=== PATIENT | male | born 1995 | race Caucasian/White ===

== ENCOUNTER → 2023-08-03 14:43 | Outpatient (REF) | payer OTHER, SELFPAY | LOC: RAD 14:43 | PROVIDERS: ATTENDING PHYSICIAN Orthopaedic Surgery; FAMILY PHYSICIAN Family Medicine | DX: S43.431A Superior glenoid labrum lesion of right shoulder, initial encounter (principal) | CPT/HCPCS: 23350; 73040; 73222 ==

== ENCOUNTER 2023-12-09 00:48 | Emergency (ER) | payer OTHER, SELFPAY ==
[2023-12-09 00:48] VITALS: BMI 31.8
[2023-12-09 00:49] VITALS: BP 159/116
--- NOTE | 2023-12-09 01:11 | ED.MUSCINJ ---
HPI-Injury
General
Chief Complaint: Musculo-Skeletal Complaint
Source: patient
Exam Limitations: none
Time Seen by Provider: 12/09/23 00:56
Nursing documentation reviewed up to this point in time: agreed with
History of Present Illness-Injury
Is this injury a work related problem?: Yes
Is pt an associate of [facility]/[place]?: No
Initial Injury comments:
28 yo male presents to the emergency to the emergency department c/o right shoulder pain after picking up an inmates belongings. He had shoulder surgery in September at [facility].
Past History
Past History
ED Past Medical History: None
ED Past Surgical History: Orthopedic (right ankle, right shoulder)
Social History
Tobacco: Non-smoker
Alcohol: None
Drug: None
Employment: Employed
Review of Systems
Review of Systems
Allergies reviewed?: Yes
All Other Systems: Not applicable
Constitutional: Reports no symptoms
EENT: Reports no symptoms
Respiratory: Reports no symptoms
Cardiac: Reports no symptoms
ABD/GI: Reports no symptoms
: Reports no symptoms
Musculoskeletal: Reports joint pain
Skin: Reports no symptoms
Neurological: Reports no symptoms
Endocrine: Reports no symptoms
Hematologic/Lymphatic: Reports no symptoms
Psychiatric: Reports no symptoms
Phy Exam
General Physical Exam
General Presentation: well appearing and no apparent distress
General Skin: warm and dry
Cardiovascular Exam
Cardiovascular Exam: normal peripheral pulses
Pulmonary Exam
Pulmonary Exam: lungs clear
Injury Course
Orders/Labs/Results
Orders:
Orders
12/09/23 01:01
Shoulder, Right, Trauma [CR Shoulder, Trauma - Right] Urgent
Comment:
Reason For Exam: pain afgter picking up prisoner belongings
MDM/Problems Addressed
Differential Diagnosis Includes:
Shoulder dislocation, shoulder strain
MDM/Problems Addressed:
28-year-old male with right shoulder strain versus rotator cuff tear. Sling placed. No acute findings on x-ray. Follow-up with orthopedics.
*Pulse Oximetry
Patient hypoxic: no
*Critical Care Note
Total Time (30-74mins, 75-104mins- exclusive of procedures): Not Applicable
Patient Management
Social determinants of health affecting care: Living situation
Escalation/DeEscalation of care consider admission/obs:
admit not indicated
ED Attending Note
-
Portions of this chart may have been created with voice recognition software.� Occasional wrong word or��sound alike� substitutions may have occurred due to the inherent limitations of voice recognition software.
Discharge Plan
Departure
Referrals:
NONE,* [Family Provider] -
Interventions
Interventions:
*Risk Screen - Suicide Last Done: 12/09/23 00:49
Discharge Date and Time
Print Language: ARABIC
[2023-12-09] MEDS: TYLENOL 1000 MG PO (01:49)
== END 2023-12-09 01:53 | disposition home or self-care (01) ==
LOC: EMR 00:48
PROVIDERS: EMERGENCY PHYSICIAN Emergency Medicine
DX: M25.511 Pain in right shoulder (principal); X58.XXXA Exposure to other specified factors, initial encounter; Y99.0 Civilian activity done for income or pay; Z98.890 Other specified postprocedural states
CPT/HCPCS: 99283; 73030

== ENCOUNTER 2025-01-25 21:38 | Emergency (ER) | payer SELFPAY ==
[2025-01-25 21:47] VITALS: BP 168/106
[2025-01-25] MEDS: TYLENOL 1000 MG PO (23:54)
[2025-01-25] MEDS: LIDOCAINE 4% PATCH 1 PATCH TOPICAL (23:55)
[2025-01-25] MEDS: DELTASONE 50 MG PO (23:55)
--- NOTE | 2025-01-25 23:59 | ED.GENMED ---
History of Present Illness
General
Chief Complaint: Back Pain
Source: patient
Exam Limitations: none
Time Seen by Provider: 01/25/25 23:03
Nursing documentation reviewed up to this point in time: agreed with
History of Present Illness
History of Present Illness:
see MDM
Past History
Past History
ED Past Medical History: None
ED Past Surgical History: Orthopedic (right ankle, right shoulder)
Social History
Tobacco: Non-smoker
Alcohol: None
Drug: None
Employment: Employed
Review of Systems
Review of Systems
Allergies reviewed?: Yes
All Other Systems: Not applicable
Phy Exam
Physical Exam
Physical Exam:
GENERAL: Alert , in no apparent distress, comfortable at rest
HEAD: NCAT
NECK: no midline tenderness, active ROM intact, no paraspinal muscle tenderness;
CARDIAC: Regular rate and rhythm, no edema
LUNGS: Clear breath sounds bilaterally, no acute respiratory distress, no wheezes/rales/rhonchi
ABDOMEN: Soft, without focal tenderness, no r/g, no cvat, normal bowel sounds, nondistended
NEUROLOGICAL: Alert and oriented, no focal neuro deficits, CN intact, 5/5 strength, sensation intact, ambulates well
SKIN: Warm and dry, no rash, no wounds, no bruising
MUSCULOSKELETAL: No edema, well perfused. Normal inspection of the RIght hip, right leg
Patient has no tenderness to palpation of the hip, minimal tenderness in the SI joint
He has no pain with flexion of the left hip, external rotation, but with internal rotation has discomfort
Back: No midline tenderness, mild R paraspinal muscle tenderness
neg straight leg raise
pain with flexion
PSYCH: Normal and appropriate interaction.
Course
Orders/Labs/Results
Orders:
Orders
01/25/25 23:33
Acetaminophen [Tylenol] 1,000 mg PO NOW STA
Prednisone [Deltasone] 50 mg PO NOW STA
Hip, Right 2-3 Views [CR Hip - RT w/wo Pel 2-3 Vw*] Urgent
Comment:
Reason For Exam: R hip pain after lifting
Include a pelvis x-ray?: Yes
Lumbar Spine Complete, 4 View [CR Lumbar Spine Comp Min 4 Vw*] Urgent
Comment:
Reason For Exam: lower back pain after lifting
01/25/25 23:34
Lidocaine [Lidocaine 4% Patch] 1 patch TOPICAL NOW STA
Apply Lidocaine patch(s) to:: back
Vital Signs
Initial and Last Documented VS:
Initial Vital Signs
Temp Pulse Resp BP Pulse Ox
36.8 C 96 18 168/106 96
01/25/25 21:47 01/25/25 21:47 01/25/25 21:47 01/25/25 21:47 01/25/25 21:47
Last Documented Vital Signs
Temp Pulse Resp BP Pulse Ox
36.8 C 82 18 143/94 98
01/25/25 21:47 01/26/25 00:21 01/26/25 00:21 01/26/25 00:21 01/26/25 00:21
MDM/Problems Addressed
Differential Diagnosis Includes:
see MDM
MDM/Problems Addressed:
Note:
CHIEF COMPLAINT(S)
Lower back pain
HISTORY OF PRESENT ILLNESS
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 The pain started after participating in a shakedown at a detention, which involved lifting and moving items. The
patient reports that the pain did not onset immediately but developed later. It is described as a shooting pain and is more prominent on the right side, where the hip meets the back. The pain is exacerbated by certain movements, such as bending over
or changing positions. The patient denies previous episodes of similar back pain but does acknowledge feeling numbness in the leg associated with the pain.
The patient reports no chronic medical conditions affecting the back or hip. He has not experienced any prior surgeries related to the back. The patient has undergone surgeries on the ankle, knee, and shoulder previously. He reports that there is no
history of back or hip surgeries. The patient denies weakness in the limbs and states that he can still push and pull effectively despite the pain.
no meds for pain
no incontiencne, fever, IVDA
CHRONIC MEDICAL CONDITIONS SIGNIFICANTLY AFFECTING CARE
The patient denies any chronic medical conditions significantly impacting current care, such as prior back or hip issues.
SOCIAL DETERMINANTS AFFECTING HEALTH
The patient did not report any specific social determinants affecting health during this encounter.
PAST SURGICAL HISTORY
The patient has undergone surgeries on the ankle, knee, and shoulder.
REVIEW OF SYSTEMS
- Musculoskeletal: Reports shooting pain in the lower back, primarily on the right side, with some discomfort on the left side. Difficulty with movements such as bending.
PHYSICAL EXAM
- Musculoskeletal: Pain observed in the lower back area, especially where the hip meets the back on the right side.
Nursing notes reviewed and vital signs reviewed.
PLAN
- Obtain X-rays to assess the space between the spinal discs and check for any potential disc herniation.
- Prescribe a course of oral steroids to reduce inflammation and manage pain, as the patient can tolerate these medications.
- Discuss with the patient that further evaluation such as an MRI would need to be arranged through workers compensation outside of the emergency setting.
- Follow-up to monitor the response to steroids and consider additional imaging if necessary.
DIFFERENTIAL DIAGNOSIS
The Differential Diagnosis includes, in no particular order and is not limited to:
1. Lumbar strain or sprain
2. Herniated disc
3. Sacroiliac joint dysfunction
4. Sciatica
5. Facet joint syndrome
6. Spinal stenosis
7. Ankylosing spondylitis
8. Osteoarthritis of the spine
9. Piriformis syndrome
10. Iliopsoas syndrome
29 y/o M
here with lower back pain after lifting something at work that was heavy
pain mostly lumbar but radiates to R hip
no weakness/numbness/incontinence
anle to walk/get up from sitting to standing easily
pain with change in position
no chronic back issues
on exam neg straight leg raise
mild tenderness R paraspinal muscles
aslo pain with rotation of R hip
nv intact
no red flag signs
xrays indep reiveweid
no fx, no signifricant arthritis
cannot use nsaids
prednisone, tylenol, lidocaine patch
workman's comp
*Pulse Oximetry
SaO2: 96
Oxygen Mode of Delivery: Room air
Patient hypoxic: no (98)
*Critical Care Note
Total Time (30-74mins, 75-104mins- exclusive of procedures): Not Applicable
ED Attending Note
-
Portions of this chart may have been created with voice recognition software.� Occasional wrong word or��sound alike� substitutions may have occurred due to the inherent limitations of voice recognition software.
Discharge Plan
Departure
Patient Disposition: Home (Routine Discharge)
Date of Disposition: 01/26/25
Time of Disposition: 00:08
Patient with high blood pressure during this ER visit?: Yes
Condition: Fair
Discharge Problem:
Acute lumbar myofascial strain
Instructions: Low Back Pain (DC), BLOOD PRESSURE
Prescriptions:
New
prednisone 50 mg tablet
50 mg PO DAILY Qty: 4 0RF
lidocaine 5 % adhesive patch,medicated
1 patch topical DAILY PRN (Reason: back pain) Qty: 15 0RF
Referrals:
UNKNOWN,NO INTERVIEW [Family Provider]
Stand Alone Forms: Return to Work
Activity Restrictions/Additional Instructions:
You likely strained your back muscles when you lifted. It is also possible you could have a disc herniation. You should take prednisone once a day for 4 more days starting tomorrow. Take Tylenol 3 times a day. Apply a lidocaine patch 12 hours
on, 12 hours off for pain as needed and when the patch is off you can do heat or ice to the area. You should follow-up with Workmen's Comp., you may need more testing if this back pain continues. Return to the emergency department for leg
weakness, leg numbness, incontinence, fevers or chills, inability to walk or any concern
Interventions
Interventions:
*Risk Screen - Suicide Last Done: 01/25/25 21:49
*General Assessment Last Done: 01/26/25 01:09
*Neglect/Abuse Screening Last Done: 01/25/25 21:49
*ED- Fall Risk Assessment Last Done: 01/26/25 01:09
*ED COVID-19 Vaccine History Last Done: 01/26/25 01:09
*ED Influenza Vaccine History Last Done: 01/26/25 01:09
*Nursing Disposition Last Done: 01/26/25 01:09
ED-Musculoskeletal Assessment Last Done: 01/26/25 00:23
Discharge Date and Time
Discharge Date/Time: 01/26/25 01:10
Print Language: UPPER SORBIAN
[2025-01-26 00:21] VITALS: BP 143/94
== END 2025-01-26 01:10 | disposition home or self-care (01) ==
LOC: EMR 21:38
PROVIDERS: EMERGENCY PHYSICIAN Student in an Organized Health Care Education/Training Program
DX: S39.012A Strain of muscle, fascia and tendon of lower back, initial encounter (principal); X50.0XXA Overexertion from strenuous movement or load, initial encounter; Y92.149 Unspecified place in prison as the place of occurrence of the external cause; Y99.0 Civilian activity done for income or pay; R03.0 Elevated blood-pressure reading, without diagnosis of hypertension
CPT/HCPCS: 99283; 72110; 73502